=== PATIENT | female | born 1985 | race Native Hawaiian/Other Pacific Islander ===

== ENCOUNTER 2022-03-19 13:08 | Emergency (ER) | payer OTHER ==
[~2022-03-19] VITALS: Ht 165.1 cm; Wt 68.0 kg
[2022-03-19 13:17] VITALS: BP 113/86; TEMP 99.9
== END 2022-03-19 14:22 | disposition home or self-care (01) ==
LOC: ED 13:08
DX: J10.1 Influenza due to other identified influenza virus with other respiratory manifestations (principal); J20.9 Acute bronchitis, unspecified; Z20.822 Contact with and (suspected) exposure to COVID-19; F17.210 Nicotine dependence, cigarettes, uncomplicated
CPT/HCPCS: 87502; 87635; 87651; 99283; U0003